=== PATIENT | male | born 1990 | race Caucasian/White ===

== ENCOUNTER 2025-05-24 14:32 | Emergency (ER) | payer SELFPAY ==
[~2025-05-24] VITALS: Ht 175.3 cm; Wt 60.6 kg
[2025-05-24 14:35] VITALS: PULSE 108; RESP 18; TEMP 97.8; O2SAT 96
[2025-05-24] MEDS: DIPHTH,PERTUSS(ACELL),TET VAC 0.5 ML SYRINGE IM ONE (14:59)
== END 2025-05-24 15:59 | disposition home or self-care (01) ==
LOC: FSED 14:48
DX: S61.200A Unspecified open wound of right index finger without damage to nail, initial encounter (principal); S01.81XA Laceration without foreign body of other part of head, initial encounter; W22.09XA Striking against other stationary object, initial encounter; W23.1XXA Caught, crushed, jammed, or pinched between stationary objects, initial encounter; Y92.89 Other specified places as the place of occurrence of the external cause
CPT/HCPCS: 80307; 99284